=== PATIENT | female | born 1975 | race Caucasian/White ===

== ENCOUNTER 2017-12-31 03:25 | Emergency (ER) | payer SELFPAY ==
[~2017-12-31] VITALS: Ht 162.6 cm; Wt 62.6 kg
--- NOTE | 2017-12-31 03:44 | Emergency Room Report ---
History of Present Illness General Chief Complaint: General Complaint Source: Patient Present Illness HPI Is a 42-year-old female who had a thyroidectomy done 2 days ago. She said during the surgery one of the parathyroid made at been removed. She present today with chief complaint of tingling to her face and finger. She worried that her calcium level is low. She is taking calcium along with pain medication. No nausea no vomiting. No fever chills. Denies any other complaint. pain is well-controlled. nothing made it better. Nothing made it worse Allergies: Coded Allergies: LATEX (Verified Allergy, Unknown, 12/31/17) LEVOFLOXACIN (Verified Allergy, Unknown, 12/31/17) SULFA (SULFONAMIDE ANTIBIOTICS) (Verified Allergy, Unknown, 12/31/17) Patient History Past Medical History: see triage record, old chart reviewed Past Surgical History: other Pertinent Family History: none Social History: Denies: smoking Last Menstrual Period: november Now: No Immunizations: other Reviewed Nursing Documentation: PMH: Agreed; PSxH: Agreed Review of Systems Eye: Denies: eye pain, blurred vision ENT: Denies: ear pain, nose congestion, throat swelling Respiratory: Denies: cough, shortness of breath Cardiovascular: Denies: chest pain, palpitations Gastrointestinal: Denies: abdominal pain, diarrhea, nausea, vomiting Musculoskeletal: Denies: back pain, joint pain Skin: Denies: rash Neurological: Reports: tingling; Denies: headache, numbness Endocrine: Denies: increased thirst, increased urine Hematologic/Lymphatic: Denies: easy bruising All Other Systems: negative except mentioned in HPI Physical Exam Vital Signs Date Time Temp Pulse Resp B/P (MAP) Pulse Ox O2 Delivery O2 Flow Rate FiO2 12/31/17 03:27 98.1 80 16 125/82 94 Room Air 98.1 vitals normal Sp02 EP Interpretation: reviewed, normal General Appearance: well appearing, no apparent distress, alert Head: normocephalic, atraumatic Eyes: bilateral eye PERRL, bilateral eye EOMI ENT: hearing grossly normal, normal pharynx, other - no spasm of face with percussion Neck: full range of motion, supple, no meningismus Respiratory: chest non-tender, lungs clear, normal breath sounds Cardiovascular #1: regular rate, rhythm, no murmur Gastrointestinal: normal bowel sounds, non tender, no mass, no organomegaly, no bruit, non-distended Musculoskeletal: back normal, gait/station normal, normal range of motion Psychiatric: mood/affect normal Skin: warm/dry Medical Decision Making Diagnostic Impression: Primary Impression: Tingling sensation ER Course Patient with tingling sensation status post thyroidectomy. No evidence of any hypocalcemia. Most likely anxiety related. We'll discharge home. Last Vital Signs Date Time Temp Pulse Resp B/P (MAP) Pulse Ox O2 Delivery O2 Flow Rate FiO2 12/31/17 03:27 98.1 80 16 125/82 94 Room Air 98.1 Status: improved Disposition: HOME, SELF-CARE Condition: Stable Additional Instructions: follow-up with your Dr. as scheduled. Take your medication. Return if symptom worsen. DANIA PENNINGTON M.D. Dec 31, 2017 03:44
[2017-12-31 03:57] VITALS: BP 125/82
[2017-12-31] MEDS ORDERED: FALMINA1 EACH PO (04:05)
[2017-12-31] MEDS ORDERED: TRAMADOL HCL50 MG ORAL (04:05)
[2017-12-31] MEDS ORDERED: GABAPENTIN300 MG ORAL (04:05)
[2017-12-31] MEDS ORDERED: DOCUSATE SODIU100 MG ORAL (04:05)
[2017-12-31] MEDS ORDERED: OXYCODONE HCL10 MG ORAL (04:05)
[2017-12-31] MEDS ORDERED: VITAMIN B-12100 MCG ORAL (04:05)
[2017-12-31] MEDS ORDERED: LEXAPRO10 MG ORAL (04:05)
[2017-12-31] MEDS ORDERED: VITAMIN D1000 UNI1 ORAL (04:05)
[2017-12-31 04:08] LABS: HEMATOCRIT 40.2 % (37.0-47.0); HEMOGLOBIN 13.5 G/DL (12.0-16.0); LYMPHOCYTES % (AUTO) 31.3 % (20.0-45.0); MEAN CORPUSCULAR VOLUME 92 FL (80-99); MONOCYTES % (AUTO) 6.5 % (1.0-10.0); NEUTROPHILS % (AUTO) 60.2 % (45.0-75.0); PLATELET COUNT 264 K/UL (150-450); RED BLOOD COUNT 4.38 M/UL (4.20-5.40); WHITE BLOOD COUNT 6.7 K/UL (4.8-10.8)
[2017-12-31 04:16] LABS: ANION GAP 4 mmol/L (5-15); BLOOD UREA NITROGEN 9 mg/dL (7-18); CALCIUM 9.5 MG/DL (8.5-10.1); CARBON DIOXIDE 37 MMOL/L (21-32); CHLORIDE 99 MMOL/L (98-107); CREATININE 0.9 MG/DL (0.55-1.30); POTASSIUM 3.7 MMOL/L (3.5-5.1); SODIUM 140 MMOL/L (136-145)
[2017-12-31 04:45] VITALS: BP 125/82
== END 2017-12-31 04:46 | disposition home or self-care (01) ==
LOC: EMR 03:46
DX: R20.2 Paresthesia of skin (principal); E89.0 Postprocedural hypothyroidism; Z88.2 Allergy status to sulfonamides; Z91.040 Latex allergy status
CPT/HCPCS: 36415; 80048; 85025; 99283

== ENCOUNTER 2018-02-08 20:54 | Emergency (ER) | payer OTHER ==
[~2018-02-08] VITALS: Ht 162.6 cm; Wt 63.5 kg
[~2018-02-08 20:54] MED LIST: DOCUSATE SODIU100 MG ORAL; FALMINA1 EACH PO; GABAPENTIN300 MG ORAL; LEXAPRO10 MG ORAL; OXYCODONE HCL10 MG ORAL; TRAMADOL HCL50 MG ORAL; VITAMIN B-12100 MCG ORAL; VITAMIN D1000 UNI1 ORAL
[2018-02-08 21:11] VITALS: BP 120/76
[2018-02-08] MEDS ORDERED: Norco 5mg/325mg tab ORAL ONE (21:15)
--- NOTE | 2018-02-08 21:25 | Emergency Room Report ---
History of Present Illness General Chief Complaint: Toothache Source: Patient Present Illness HPI Is a 42-year-old female who had a recent thyroidectomy. She also saw a dentist for dental pain. She had to filling done in her left lower molar. She had to come back a couple times because of pain. She was just there few days ago and again today. Pain is 9 out of 10. No relief with her [place]. Pain radiating to the sinus and face. No fever chills but no drainage. No swelling. Allergies: Coded Allergies: LATEX (Verified Allergy, Unknown, 12/31/17) LEVOFLOXACIN (Verified Allergy, Unknown, 12/31/17) SULFA (SULFONAMIDE ANTIBIOTICS) (Verified Allergy, Unknown, 12/31/17) Patient History Past Medical History: see triage record, old chart reviewed Past Surgical History: other Pertinent Family History: none Social History: Denies: smoking Last Menstrual Period: 01/22/18 Now: No Immunizations: other Reviewed Nursing Documentation: PMH: Agreed; PSxH: Agreed Nursing Documentation-PMH Hx Cancer: Yes - thyroid cx Review of Systems Eye: Denies: eye pain, blurred vision ENT: Reports: other - Dental pain; Denies: ear pain, nose congestion, throat swelling Respiratory: Denies: cough, shortness of breath Cardiovascular: Denies: chest pain, palpitations Gastrointestinal: Denies: abdominal pain, diarrhea, nausea, vomiting Musculoskeletal: Denies: back pain, joint pain Skin: Denies: rash Neurological: Denies: headache, numbness Endocrine: Denies: increased thirst, increased urine Hematologic/Lymphatic: Denies: easy bruising All Other Systems: negative except mentioned in HPI Physical Exam Vital Signs Date Time Temp Pulse Resp B/P (MAP) Pulse Ox O2 Delivery O2 Flow Rate FiO2 02/08/18 21:01 98.4 75 16 120/76 98 Room Air 98.4 vitals normal Sp02 EP Interpretation: reviewed, normal General Appearance: well appearing, no apparent distress, alert Head: normocephalic, atraumatic Eyes: bilateral eye PERRL, bilateral eye EOMI ENT: hearing grossly normal, normal pharynx Neck: full range of motion, supple, no meningismus Respiratory: chest non-tender, lungs clear, normal breath sounds Cardiovascular #1: regular rate, rhythm, no murmur Gastrointestinal: normal bowel sounds, non tender, no mass, no organomegaly, no bruit, non-distended Musculoskeletal: back normal, gait/station normal, normal range of motion Psychiatric: mood/affect normal Skin: warm/dry Medical Decision Making Diagnostic Impression: Primary Impression: Toothache ER Course Patient with toothache. I see no evidence of any swelling or abscess. She had x-ray done today and last week. I will going put her on antibiotics. Last Vital Signs Date Time Temp Pulse Resp B/P (MAP) Pulse Ox O2 Delivery O2 Flow Rate FiO2 02/08/18 21:22 98.4 02/08/18 21:01 75 16 120/76 98 Room Air Status: improved Disposition: HOME, SELF-CARE Condition: Stable Scripts Clindamycin Hcl (CLINDAMYCIN HCL) 300 Mg Capsule 300 MG ORAL THREE TIMES A DAY, #21 CAP Prov: DANIA PENNINGTON M.D. 02/08/18 Patient Instructions: Dental Pain Additional Instructions: Follow-up your dentist ANGELA. Return if symptom worsen. DANIA PENNINGTON M.D. Feb 08, 2018 21:25
[2018-02-08] MEDS ORDERED: CLINDAMYCIN HC300 MG ORAL (21:29)
[2018-02-08 21:32] VITALS: BP 120/76
== END 2018-02-08 21:32 | disposition home or self-care (01) ==
LOC: EMR 21:24
DX: K08.89 Other specified disorders of teeth and supporting structures (principal); Z85.850 Personal history of malignant neoplasm of thyroid
CPT/HCPCS: 99282

== ENCOUNTER 2018-04-09 08:06 | Day surgery (SDC) | payer OTHER ==
[~2018-04-09] VITALS: Ht 162.6 cm; Wt 63.5 kg
[~2018-04-09 08:06] MED LIST changes: +Bupivacaine 0.5% Inj 30 ml vial INJ ONE; +CLINDAMYCIN HC300 MG ORAL; +Depo-Medrol 40mg Inj IARTIC ONE; +Depo-Medrol 80mg Vial IARTIC ONE; +Isovue-M 300 15ml INJ ONE; +LORazepam Inj 2mg/ml 1ml IV ONE; +Lidocaine 1% MPF 10mg/ml 5ml IM ONE
[2018-04-09 08:44] VITALS: BP 102/57
[2018-04-09] MEDS ORDERED: BUTRANS1 EAC3 TD (09:06)
[2018-04-09 09:24] LABS: BASOPHILS % (AUTO) 1.3 % (0.0-2.0); EOSINOPHILS % (AUTO) 1.2 % (0.0-3.0); HEMATOCRIT 35.3 % (37.0-47.0); HEMOGLOBIN 11.6 G/DL (12.0-16.0); LYMPHOCYTES % (AUTO) 41.2 % (20.0-45.0); MEAN CORPUSCULAR VOLUME 91 FL (80-99); MONOCYTES % (AUTO) 11.4 % (1.0-10.0); NEUTROPHILS % (AUTO) 44.9 % (45.0-75.0); PLATELET COUNT 227 K/UL (150-450); RED CELL DISTRIBUTION WIDTH 11.7 % (11.6-14.8); WHITE BLOOD COUNT 4.8 K/UL (4.8-10.8)
[2018-04-09 10:45] VITALS: BP 103/55
--- NOTE | 2018-04-09 10:53 | Discharge Instructions ---
Discharge Instructions Discharge Instructions Follow up with: dr. staley Diet: regular Resume Normal Activity?: Yes Activity: up ad rupinder For Surgical Patients Clean and Dry: surgical site Dressing Care: may change May shower: Yes Contact your physician for: bleeding, pain, tenderness, redness, swelling, yellowish discharge in the op. site For Congestive Heart Failure Reminder Report to your physician any weight gain of 5 pounds or more in one week. Mylene Staley MD Apr 09, 2018 10:53
--- NOTE | 2018-04-09 17:00 | Procedure Note ---
DATE OF PROCEDURE: 04/09/2018 PRE-PROCEDURE DIAGNOSIS: Degenerative disc disease, cervical with radiculopathy. POSTPROCEDURE DIAGNOSES: Degenerative disk disease, cervical with radiculopathy. PROCEDURE PERFORMED: Cervical epidural steroid injection under fluoroscopy. SURGEON: Mylene Staley M.D. PROCEDURE IN DETAIL: The patient was warned of the risks, benefits were discussed, questions were answered. The patient indicated that she understood and accepted risks including not only those involving the risk of the procedure itself, but also those regarding the use of x-ray contrast agent, radiation, nerve damage, bleeding, and . The patient was transported to the radiology suite and placed in the prone position on fluoroscopic compatible table. The cervical spine was flexed and forehead was placed on a padded toe. The skin was prepped with antiseptic solution at C5-C6 and C6-C7 interspaces. Spinous processes were located with the middle finger and index finger on either side and confirmed with palpation using a rocking motion in superior and inferior planes. The midline of C5-C6 interspace was identified by palpating the spinous processes above and below using no lateral rocking motion to ensure that needle entry was exactly in the midline. A syringe with 1% lidocaine methylparaben free was used to infiltrate the skin at the midline and a 3.5 inch 22-gauge Tuohy needle was inserted through the previously anesthetized area. A glass syringe with preservative free normal saline was attached holding firmly to the hub of the epidural needle with left hand firmly placed against the patient's neck. Constant pressure was applied to the plunger of the syringe with the right hand. The needle and syringe were continuously advanced in a slow deliberate motion with the left hand. There was a loss of resistance. Gentle aspiration revealed no CSF or heme and there was no paresthesia noted. Syringe containing 1 mL of 0.5% bupivacaine plus 120 mg of Depo-Medrol was instilled in the epidural space after confirmation of location with Isovue M 300 to make an epidurogram. The needle was removed without incident while flushing with preservative free normal saline. There was no residual motor or sensory deficit appreciated. The patient received 2 mg of lorazepam intravenously prior to the procedure and tolerated the procedure well without incident. The patient was transported to short stay surgery for monitoring given instructions for discharge when stable. Radiological technical assistance only was provided. Mylene Staley M.D. DR: Tay JOB#: [id number] CC: KAZ
== END 2018-04-09 11:20 | disposition home or self-care (01) ==
LOC: RAD 08:06 → SUR 08:06 → RAD 11:20
DX: M50.10 Cervical disc disorder with radiculopathy, unspecified cervical region (principal); M51.36 Other intervertebral disc degeneration, lumbar region; E06.3 Autoimmune thyroiditis; F32.9 Major depressive disorder, single episode, unspecified; Z85.850 Personal history of malignant neoplasm of thyroid; Z88.2 Allergy status to sulfonamides; Z88.1 Allergy status to other antibiotic agents; Z91.040 Latex allergy status; Z87.891 Personal history of nicotine dependence
CPT/HCPCS: 36415; 62321; 81025; 85025; 85610; 85730

== ENCOUNTER 2018-04-16 12:30 | Day surgery (SDC) | payer OTHER ==
[~2018-04-16] VITALS: Ht 162.6 cm; Wt 63.5 kg
[~2018-04-16 12:30] MED LIST changes: +BUTRANS1 EAC3 TD; -Bupivacaine 0.5% Inj 30 ml vial INJ ONE; +Bupivacaine 0.5% Inj 30 ml vial INJ SCH; -Depo-Medrol 40mg Inj IARTIC ONE; -Depo-Medrol 80mg Vial IARTIC ONE; +Depo-Medrol 80mg Vial IARTIC SCH; -Isovue-M 300 15ml INJ ONE; +Isovue-M 300 15ml INJ SCH; -LORazepam Inj 2mg/ml 1ml IV ONE; +LORazepam Inj 2mg/ml 1ml IV SCH; +Lidocaine 1% 10mg/ml/Epi 0.005mg/ml 30ml vial INJ SCH; -Lidocaine 1% MPF 10mg/ml 5ml IM ONE; +Lidocaine 1% MPF 10mg/ml 5ml INJ SCH
[2018-04-16 13:06] VITALS: BP 109/70
[2018-04-16] MEDS ORDERED: Bupivacaine 0.5% Inj 30 ml vial INJ ONE (13:16)
[2018-04-16] MEDS ORDERED: Lidocaine 1% MPF 10mg/ml 5ml ONE (13:16)
[2018-04-16] MEDS ORDERED: Depo-Medrol 80mg Vial ONE (13:16)
[2018-04-16] MEDS ORDERED: LORazepam Inj 2mg/ml 1ml ONE (13:17)
--- NOTE | 2018-04-16 14:40 | Discharge Instructions ---
Discharge Instructions Discharge Instructions Follow up with: Dr. Staley Diet: regular Resume Normal Activity?: Yes Activity: up ad rupinder Pneumonia Vaccine: vaccine not indicated Follow Up Orders patient to return to clinic in one week Return to Work/School on: Apr 16, 2018 For Surgical Patients Clean and Dry: surgical site Dressing Care: may change May shower: Yes Contact your physician for: bleeding, pain, tenderness, redness, swelling, yellowish discharge in the op. site For Congestive Heart Failure Reminder Report to your physician any weight gain of 5 pounds or more in one week. Mylene Staley MD Apr 16, 2018 14:40
[2018-04-16 14:50] VITALS: BP 98/62
[2018-04-16 15:10] VITALS: BP 103/57
--- NOTE | 2018-04-16 16:01 | Diagnostic Imaging Report ---
INDICATION: Neck pain, intraoperative TECHNIQUE: Intraoperative imaging Fluoroscopy time: 5.1 seconds Total dose: 0.19526 mGym2 Total number of images: One COMPARISON: None FINDINGS: Single intraoperative image demonstrates a needle, the tip of which there is contrast pooled to the right of midline at the C5-6 level IMPRESSION: Intraoperative imaging, as described
--- NOTE | 2018-04-16 20:00 | Procedure Note ---
DATE OF PROCEDURE: 04/16/2018 PREPROCEDURE DIAGNOSIS: Degenerative disc disease, cervical with radiculopathy. POSTPROCEDURE DIAGNOSIS: Degenerative disc disease, cervical with radiculopathy. PROCEDURE PERFORMED: Cervical epidural steroid injection under fluoroscopy. SURGEON: Mylene Staley M.D. PROCEDURE IN DETAIL: The patient was warned of risks, benefits were discussed, and questions were answered. The patient indicated that she understood and accepted the risks including not only those involving the risk of the procedure itself, but also those regarding the use of x-ray, contrast agent, radiation, nerve damage, bleeding, and . The patient was transported to the radiology suite and placed in the prone position on the fluoroscopic compatible table. The cervical spine was flexed and the forehead was placed on a padded pillow. The skin was prepped with antiseptic solution at C5-C6 and C6-C7 interspaces. The spinous processes were located with the middle finger and index finger on either side and confirmed with palpation using a rocking motion in the superior and inferior planes. The midline of C5-C6 interspace was identified by palpating the spinous processes above and below using lateral rocking motion to ensure that the needle entry was exactly at the midline. A syringe with 1% lidocaine methylparaben free was used to infiltrate the skin at the midline and a 3.5 inch 22-gauge Tuohy needle was inserted through the previously anesthetized area. A glass syringe with preservative-free normal saline was attached holding firmly to the hub of the epidural needle with the left hand firmly placed against the patient's neck. Constant pressure was applied to the plunger of the syringe with the right hand. The needle and syringe were continuously advanced in a slow deliberate motion with the left hand. There was a loss of resistance. Gentle aspiration revealed no CSF or heme and there was no paresthesia noted. A syringe containing 1 mL of 0.5% bupivacaine plus 80 mg of Depo-Medrol was instilled in the epidural space after confirmation of location with Isovue-M 300 to make an epidurogram. The needle was removed without incident while flushing with preservative free normal saline. There was no residual motor or sensory deficits appreciated. The patient received a total of 4 mg of lorazepam intravenously in 2 mg aliquots throughout the procedure and the patient tolerated the procedure well without incident. The patient was transported to short stay surgery for monitoring and given instructions for discharge when stable. Radiological technical assistance only was provided. Mylene Staley M.D. DR: BAILEY JOB#: [id number] CC: KAZ
== END 2018-04-16 15:30 | disposition home or self-care (01) ==
LOC: RAD 12:30
DX: M50.10 Cervical disc disorder with radiculopathy, unspecified cervical region (principal); M51.36 Other intervertebral disc degeneration, lumbar region; E06.3 Autoimmune thyroiditis; E89.0 Postprocedural hypothyroidism; F32.9 Major depressive disorder, single episode, unspecified; Z88.2 Allergy status to sulfonamides; Z88.1 Allergy status to other antibiotic agents; Z91.040 Latex allergy status
CPT/HCPCS: 62320; 81025

== ENCOUNTER 2018-04-25 23:12 | Emergency (ER) | payer SELFPAY ==
[~2018-04-25] VITALS: Ht 162.6 cm; Wt 60.3 kg
[~2018-04-25 23:12] MED LIST changes: -Bupivacaine 0.5% Inj 30 ml vial INJ SCH; -Depo-Medrol 80mg Vial IARTIC SCH; -Isovue-M 300 15ml INJ SCH; -LORazepam Inj 2mg/ml 1ml IV SCH; -Lidocaine 1% 10mg/ml/Epi 0.005mg/ml 30ml vial INJ SCH; -Lidocaine 1% MPF 10mg/ml 5ml INJ SCH
[2018-04-25] MEDS ORDERED: SYNTHROID100 MCG ORAL (23:22)
[2018-04-25] MEDS ORDERED: LORazepam Inj 2mg/ml 1ml IM ONE (23:45)
[2018-04-25 23:55] VITALS: BP 131/81
--- NOTE | 2018-04-26 00:15 | Emergency Room Report ---
History of Present Illness General Chief Complaint: General Complaint Source: Patient Present Illness HPI Is a 42-year-old female with a history of hypothyroid requiring surgery. Now she is hypothyroid on medication. She also has a history anxiety. She presents with chief complaint of feeling anxious. No suicidal thought homicidal thought. She thought this may be secondary to her dosing of Synthroid been decreased from 112 mcg to 100 mcg. She took some Valium is not helping. Feeling shaky. Feeling nervous. Denies any other complaint. Allergies: Coded Allergies: LATEX (Verified Allergy, Unknown, 12/31/17) LEVOFLOXACIN (Verified Allergy, Unknown, 12/31/17) SULFA (SULFONAMIDE ANTIBIOTICS) (Verified Allergy, Unknown, 12/31/17) Patient History Past Medical History: see triage record, old chart reviewed, psych hx Past Surgical History: other Pertinent Family History: none Social History: Denies: smoking Last Menstrual Period: 04/20/18 Now: No Immunizations: other Reviewed Nursing Documentation: PMH: Agreed; PSxH: Agreed Nursing Documentation-PMH Past Medical History: No History, Except For Hx Cardiac Problems: No Hx Cancer: Yes - THYROID Hx Gastrointestinal Problems: No Hx Neurological Problems: Yes Hx Headaches: Yes - FOR 25 DAYS STRAIGHT Review of Systems Eye: Denies: eye pain, blurred vision ENT: Denies: ear pain, nose congestion, throat swelling Respiratory: Denies: cough, shortness of breath Cardiovascular: Reports: palpitations; Denies: chest pain Gastrointestinal: Denies: abdominal pain, diarrhea, nausea, vomiting Musculoskeletal: Denies: back pain, joint pain Skin: Denies: rash Psychiatric: Reports: anxiety Neurological: Denies: headache, numbness Endocrine: Denies: increased thirst, increased urine Hematologic/Lymphatic: Denies: easy bruising All Other Systems: negative except mentioned in HPI Physical Exam Vital Signs Date Time Temp Pulse Resp B/P (MAP) Pulse Ox O2 Delivery O2 Flow Rate FiO2 04/25/18 23:16 97.5 84 18 131/81 97 Room Air vitals normal Sp02 EP Interpretation: reviewed, normal General Appearance: well appearing, no apparent distress, alert Head: normocephalic, atraumatic Eyes: bilateral eye PERRL, bilateral eye EOMI ENT: hearing grossly normal, normal pharynx Neck: full range of motion, supple, no meningismus Respiratory: chest non-tender, lungs clear, normal breath sounds Cardiovascular #1: regular rate, rhythm, no murmur Gastrointestinal: normal bowel sounds, non tender, no mass, no organomegaly, no bruit, non-distended Musculoskeletal: back normal, gait/station normal, normal range of motion Neurologic: alert, oriented x3 Psychiatric: anxious Skin: warm/dry Medical Decision Making Diagnostic Impression: Primary Impression: Anxiety ER Course She presents with anxiety/panic attack. Better after Ativan. No longer shaky. No longer nervous. We'll discharge home. Last Vital Signs Date Time Temp Pulse Resp B/P (MAP) Pulse Ox O2 Delivery O2 Flow Rate FiO2 04/25/18 23:55 97.5 98 18 131/81 97 Room Air Status: improved Disposition: HOME, SELF-CARE Condition: Stable Additional Instructions: Follow-up with your doctor in 7 days. Return if worse. Axel Lubin MD Apr 26, 2018 00:15
[2018-04-26 00:19] VITALS: BP 131/81
== END 2018-04-26 00:10 | disposition home or self-care (01) ==
LOC: EMR 23:40
DX: F41.9 Anxiety disorder, unspecified (principal); E03.9 Hypothyroidism, unspecified; Z88.2 Allergy status to sulfonamides; Z91.040 Latex allergy status; Z79.899 Other long term (current) drug therapy
CPT/HCPCS: 96372; 99283

== ENCOUNTER 2018-08-31 14:49 | Emergency (ER) | payer BC ==
[~2018-08-31] VITALS: Ht 162.6 cm; Wt 65.8 kg
[~2018-08-31 14:49] MED LIST changes: +SYNTHROID100 MCG ORAL
[2018-08-31 14:56] VITALS: BP 134/86
[2018-08-31] MEDS ORDERED: LEXAPRO10 MG ORAL (14:59)
[2018-08-31] MEDS ORDERED: Birth control ORAL (14:59)
[2018-08-31] MEDS ORDERED: Morphine Sulfate 4mg/ml Inj (IV USE ONLY) IVP ONE (15:15)
[2018-08-31] MEDS ORDERED: Isovue-300 100ml vial INJ PRN (15:15)
--- NOTE | 2018-08-31 15:19 | Emergency Room Report ---
History of Present Illness General Chief Complaint: Abdominal Pain Source: Patient Present Illness HPI 42-year-old female presents ED for evaluation. Patient complaining of abdominal pain started about one hour ago. 8 out of 10, sharp, nonradiating, localized to right lower quadrant. Nausea, denies vomiting. Denies fevers or chills. Denies dysuria or hematuria. No other aggravating relieving factors. Denies any other associated symptoms Allergies: Coded Allergies: LATEX (Verified Allergy, Unknown, 12/31/17) LEVOFLOXACIN (Verified Allergy, Unknown, 12/31/17) SULFA (SULFONAMIDE ANTIBIOTICS) (Verified Allergy, Unknown, 12/31/17) SULFAMETHOXAZOLE (Verified Allergy, Unknown, 08/31/18) TRIMETHOPRIM (Verified Allergy, Unknown, 08/31/18) Patient History Past Medical History: psych hx, other - thyroid cancer Past Surgical History: none Pertinent Family History: none Social History: Denies: smoking, alcohol use, drug use Last Menstrual Period: 08/13/2018 Now: No Immunizations: UTD Reviewed Nursing Documentation: PMH: Agreed; PSxH: Agreed Nursing Documentation-PMH Past Medical History: No History, Except For Hx Cardiac Problems: No Hx Cancer: Yes - THYROID CA Hx Gastrointestinal Problems: No History Of Psychiatric Problem: Yes - Depression Hx Neurological Problems: Yes Hx Headaches: Yes - FOR 25 DAYS STRAIGHT Review of Systems All Other Systems: negative except mentioned in HPI Physical Exam Vital Signs Date Time Temp Pulse Resp B/P (MAP) Pulse Ox O2 Delivery O2 Flow Rate FiO2 08/31/18 14:56 98.4 86 14 134/86 95 Room Air Sp02 EP Interpretation: reviewed, normal General Appearance: no apparent distress, alert, GCS 15, non-toxic Head: normocephalic, atraumatic Eyes: bilateral eye normal inspection, bilateral eye PERRL ENT: hearing grossly normal, normal pharynx, no angioedema, normal voice Neck: full range of motion, supple/symm/no masses Respiratory: chest non-tender, lungs clear, normal breath sounds, speaking full sentences Cardiovascular #1: regular rate, rhythm, no edema Cardiovascular #2: 2+ carotid (R), 2+ carotid (L), 2+ radial (R), 2+ radial (L) , 2+ dorsalis pedis (R), 2+ dorsalis pedis (L) Gastrointestinal: normal bowel sounds, soft, non-distended, no rebound, guarding, tenderness - RLQ Rectal: deferred Genitourinary: normal inspection, no CVA tenderness Musculoskeletal: back normal, gait/station normal, normal range of motion, non- tender Neurologic: alert, oriented x3, responsive, motor strength/tone normal, sensory intact, speech normal Psychiatric: judgement/insight normal, memory normal, mood/affect normal, no suicidal/homicidal ideation Reflexes: 3+ bicep (R), 3+ bicep (L), 3+ tricep (R), 3+ tricep (L), 3+ knee (R) , 3+ knee (L) Skin: normal color, no rash, warm/dry, well hydrated Lymphatic: no adenopathy Medical Decision Making Diagnostic Impression: Primary Impression: Abdominal pain Qualified Codes: R10.31 - Right lower quadrant pain ER Course Hospital Course 42-year-old F presents to ED with abdominal pain Differential diagnosis includes-appendicitis, cholecystitis, small bowel obstruction, gastritis, Clinical course Patient placed on stretcher. After initial history and physical I ordered labs , IV fluids, pain medications and CT scan Labs - no leukocytosis, electrolytes ok, LFTs normal, UA unremarkable CT scan shows no evidence of appendicitis or other acute process. It appears significant fecal impaction on the right side Discussed findings with patient. Reassurance given. Patient states she is on tramadol for chronic back pain. Explained that prolonged opiate use can precipitate one to constipation. We will discharged to home with stool softeners. We also recommend alternative medications for her back pain. We will try Tylenol, Robaxin, Lidoderm Patient states she has a PMD. We'll provide copies of CT report and labs. Safe for discharge and close outpatient follow-up I feel this is a highly complex case requiring extensive working including EKG/ Rhythm strip, Xray/CT/US, Blood/urine lab work, repeat exams while in ED, and administration of strong opiates/narcotics for pain control, admission to hospital or close patient follow up. Diagnosis - abdominal pain Stable and discharged to home with Rx Tylenol, Robaxin, Lidoderm, colace. Followup with PMD. Return to ED if symptoms recur or worsen Labs Test 08/31/18 15:20 White Blood Count 5.8 K/UL (4.8-10.8) Red Blood Count 4.09 M/UL (4.20-5.40) Hemoglobin 12.6 G/DL (12.0-16.0) Hematocrit 38.0 % (37.0-47.0) Mean Corpuscular Volume 93 FL (80-99) Mean Corpuscular Hemoglobin 30.9 PG (27.0-31.0) Mean Corpuscular Hemoglobin Concent 33.2 G/DL (32.0-36.0) Red Cell Distribution Width 11.1 % (11.6-14.8) Platelet Count 266 K/UL (150-450) Mean Platelet Volume 7.2 FL (6.5-10.1) Neutrophils (%) (Auto) 54.5 % (45.0-75.0) Lymphocytes (%) (Auto) 37.1 % (20.0-45.0) Monocytes (%) (Auto) 5.4 % (1.0-10.0) Eosinophils (%) (Auto) 1.3 % (0.0-3.0) Basophils (%) (Auto) 1.6 % (0.0-2.0) Urine Color Pale yellow Urine Appearance Clear Urine pH 6.5 (4.5-8.0) Urine Specific Neal 1.005 (1.005-1.035) Urine Protein Negative (NEGATIVE) Urine Glucose (UA) Negative (NEGATIVE) Urine Ketones Negative (NEGATIVE) Urine Blood Negative (NEGATIVE) Urine Nitrite Negative (NEGATIVE) Urine Bilirubin Negative (NEGATIVE) Urine Urobilinogen Normal MG/DL (0.0-1.0) Urine Leukocyte Esterase Negative (NEGATIVE) Urine HCG, Qualitative Negative (NEGATIVE) Sodium Level 138 MMOL/L (136-145) Potassium Level 4.1 MMOL/L (3.5-5.1) Chloride Level 102 MMOL/L (98-107) Carbon Dioxide Level 28 MMOL/L (21-32) Anion Gap 8 mmol/L (5-15) Blood Urea Nitrogen 10 mg/dL (7-18) Creatinine 0.8 MG/DL (0.55-1.30) Estimat Glomerular Filtration Rate > 60 mL/min (>60) Glucose Level 90 MG/DL (74-106) Calcium Level 8.5 MG/DL (8.5-10.1) Total Bilirubin 0.4 MG/DL (0.2-1.0) Aspartate Amino Transf (AST/SGOT) 18 U/L (15-37) Alanine Aminotransferase (ALT/SGPT) 20 U/L (12-78) Alkaline Phosphatase 49 U/L (46-116) Total Protein 7.3 G/DL (6.4-8.2) Albumin 4.0 G/DL (3.4-5.0) Globulin 3.3 g/dL Albumin/Globulin Ratio 1.2 (1.0-2.7) Lipase 161 U/L (73-393) CT/MRI/US Diagnostic Results CT/MRI/US Diagnostic Results : Imaging Test Ordered: CT A/P Impression Liver: Focal fat along the falciform ligament. Spleen: Small hypodensity in the spleen is too small to definitively characterize. Gallbladder: Normal. No stones or biliary dilatation. Pancreas: Normal. No acute inflammation. No mass. Adrenal glands: Normal. No mass. Kidneys: Normal. No hydronephrosis or stone. No mass. Bowel: Large amount of stool in the colon may represent constipation. Normal appendix. No bowel obstruction or inflammation. Urinary bladder: Nonspecific mild bladder wall thickening. Reproductive organs: Normal. Muscles: No mass. Subcutaneous tissues: Normal. Peritoneal space: Normal. No free fluid. Lymph nodes: Normal. No lymphadenopathy. Vessels: Normal. No aneurysm or dissection. Bones: No acute fracture. Prominent degenerative changes at L5-S1. Lung bases: Normal. Last Vital Signs Date Time Temp Pulse Resp B/P (MAP) Pulse Ox O2 Delivery O2 Flow Rate FiO2 08/31/18 14:56 98.4 86 14 134/86 95 Room Air Status: improved Disposition: HOME, SELF-CARE Condition: Stable Scripts Lidocaine (Lidoderm) 1 Each Adh..patch 1 PATCH TOPIC DAILY, #7 PATCH 0 Refills Patch(es) may remain in place for up to 12 hours in any 24-hour period. Prov: Sina Miller MD 08/31/18 Methocarbamol* (ROBAXIN-750*) 750 Mg Tablet 750 MG PO TID, #21 TAB 0 Refills Prov: Sina Miller MD 08/31/18 Acetaminophen* (TYLENOL EXTRA STRENGTH*) 500 Mg Tablet 500 MG ORAL Q8H PRN for Prn Headache/Temp > 101, #30 TAB 0 Refills Prov: Sina Miller MD 08/31/18 Docusate Sodium* (COLACE*) 100 Mg Capsule 100 MG ORAL THREE TIMES A DAY, #30 CAP Prov: Sina Miller MD 08/31/18 Sina Miller MD Aug 31, 2018 15:19
[2018-08-31 15:50] LABS: APPEARANCE,URINE CLEAR; BILIRUBIN, URINE NEGATIVE (NEGATIVE); COLOR,URINE PALE YELLOW; GLUCOSE, URINE (UA) NEGATIVE (NEGATIVE); KETONES,URINE NEGATIVE (NEGATIVE); LEUKOCYTE ESTERASE ,URINE NEGATIVE (NEGATIVE); NITRITE,URINE NEGATIVE (NEGATIVE); PH,URINE 6.5 (4.5-8.0); PROTEIN,URINE NEGATIVE (NEGATIVE); UROBILINOGEN,URINE NORMAL MG/DL (0.0-1.0)
[2018-08-31 15:59] LABS: ANION GAP 8 mmol/L (5-15); BLOOD UREA NITROGEN 10 mg/dL (7-18); CALCIUM 8.5 MG/DL (8.5-10.1); CARBON DIOXIDE 28 MMOL/L (21-32); CHLORIDE 102 MMOL/L (98-107); CREATININE 0.8 MG/DL (0.55-1.30); POTASSIUM 4.1 MMOL/L (3.5-5.1); SODIUM 138 MMOL/L (136-145)
[2018-08-31 16:00] LABS: BASOPHILS % (AUTO) 1.6 % (0.0-2.0); EOSINOPHILS % (AUTO) 1.3 % (0.0-3.0); HEMOGLOBIN 12.6 G/DL (12.0-16.0); LYMPHOCYTES % (AUTO) 37.1 % (20.0-45.0); MEAN CORPUSCULAR VOLUME 93 FL (80-99); MONOCYTES % (AUTO) 5.4 % (1.0-10.0); NEUTROPHILS % (AUTO) 54.5 % (45.0-75.0); PLATELET COUNT 266 K/UL (150-450); RED BLOOD COUNT 4.09 M/UL (4.20-5.40); RED CELL DISTRIBUTION WIDTH 11.1 % (11.6-14.8); WHITE BLOOD COUNT 5.8 K/UL (4.8-10.8)
[2018-08-31 16:08] LABS: ALANINE AMINOTRANSFERASE 20 U/L (12-78); ALBUMIN/GLOBULIN RATIO 1.2 (1.0-2.7); ALKALINE PHOSPHATASE 49 U/L (46-116); ASPARTATE AMINO TRANSFERASE 18 U/L (15-37); BILIRUBIN,TOTAL 0.4 MG/DL (0.2-1.0)
[2018-08-31 17:05] VITALS: BP 129/82
--- NOTE | 2018-08-31 18:04 | Consultation ---
History of Present Illness General Date patient seen: Aug 31, 2018 Reason for Hospitalization: Abdominal Pain Present Illness HPI 42 year old female with history of thyroid cancer s/p total thyroidectomy on synthroid presented with acute onset of RLQ abdominal pain starting 4 hrs ago. States she was going about her day until she had acute onset 10/10 RLQ sharp abdominal pain. no associated nausea or emesis. no fever or chills. no radiation of pain. states it was difficult for her to put her her pants given amount of pain. came to ED for evaluation. states pain almost resolved now after 1 dose of morphine. labs nml. CT pending. Surgery called to evaluate. patient seen, chart reviewed, patient examined. Allergies: Coded Allergies: LATEX (Verified Allergy, Unknown, 12/31/17) LEVOFLOXACIN (Verified Allergy, Unknown, 12/31/17) SULFA (SULFONAMIDE ANTIBIOTICS) (Verified Allergy, Unknown, 12/31/17) SULFAMETHOXAZOLE (Verified Allergy, Unknown, 08/31/18) TRIMETHOPRIM (Verified Allergy, Unknown, 08/31/18) Medication History Scheduled Escitalopram Oxalate* (Lexapro*), 15 MG ORAL DAILY, (Reported) Levothyroxine Sodium* (Synthroid*), 88 MCG ORAL DAILY, (Reported) [ control], 1 TAB ORAL DAILY, (Reported) Patient History Healthcare decision maker Resuscitation status Advanced Directive on File Review of Systems Review of Symptoms General ROS: no weight loss or fever Psychological ROS: no depression or mood changes, no memory loss Ophthalmic ROS: no visual changes or eye irritation ENT ROS: no nasal congestion, hearing loss, dizziness Allergy and Immunology ROS: no allergic symptoms or urticaria Hematological and Lymphatic ROS: no swollen glands, unusual bleeding or bruising Endocrine ROS: no polyuria, polydipsia, weight changes, temperature intolerance Respiratory ROS: no cough, shortness of breath, or wheezing Cardiovascular ROS: no chest pain or dyspnea on exertion Gastrointestinal ROS: abdominal pain, no bright red blood in stool. Musculoskeletal ROS: no myalgias or arthralgias Neurological ROS: no TIA or stroke symptoms Dermatological ROS: no new or changing skin lesions, rashes or pruritis Physical Exam Physical Exam General appearance: alert, cooperative, no distress, appears stated age Head: Normocephalic, without obvious abnormality, atraumatic Eyes: conjunctivae/corneas clear. PERRL, EOM's intact. Fundi benign Throat: Lips, mucosa, and tongue normal. Teeth and gums normal; prior thyroidectomy scar well healed Neck: supple, symmetrical, trachea midline, no adenopathy, thyroid: not enlarged, symmetric, no tenderness/mass/nodules, no carotid bruit and no JVD Lungs: clear to auscultation bilaterally Heart: regular rate and rhythm, S1, S2 normal, no murmur, click, rub or gallop Abdomen: soft, minimal tender on deep palpation of RLQ without rebound or guarding. Bowel sounds normal. No masses, no organomegaly Extremities: extremities normal, atraumatic, no cyanosis or edema Pulses: 2+ and symmetric Skin: Skin color, texture, turgor normal. No rashes or lesions Neurologic: Grossly normal Last 24 Hour Vital Signs Date Time Temp Pulse Resp B/P (MAP) Pulse Ox O2 Delivery O2 Flow Rate FiO2 08/31/18 17:05 98.2 79 15 129/82 99 Room Air 08/31/18 15:56 98.4 08/31/18 15:06 86 14 Room Air 08/31/18 14:56 98.4 86 14 134/86 95 Room Air 08/31/18 14:56 98.4 14 134/86 95 Room Air Laboratory Tests Test 08/31/18 15:20 White Blood Count 5.8 K/UL (4.8-10.8) Red Blood Count 4.09 M/UL (4.20-5.40) L Hemoglobin 12.6 G/DL (12.0-16.0) Hematocrit 38.0 % (37.0-47.0) Mean Corpuscular Volume 93 FL (80-99) Mean Corpuscular Hemoglobin 30.9 PG (27.0-31.0) Mean Corpuscular Hemoglobin Concent 33.2 G/DL (32.0-36.0) Red Cell Distribution Width 11.1 % (11.6-14.8) L Platelet Count 266 K/UL (150-450) Mean Platelet Volume 7.2 FL (6.5-10.1) Neutrophils (%) (Auto) 54.5 % (45.0-75.0) Lymphocytes (%) (Auto) 37.1 % (20.0-45.0) Monocytes (%) (Auto) 5.4 % (1.0-10.0) Eosinophils (%) (Auto) 1.3 % (0.0-3.0) Basophils (%) (Auto) 1.6 % (0.0-2.0) Urine Color Pale yellow Urine Appearance Clear Urine pH 6.5 (4.5-8.0) Urine Specific Ava 1.005 (1.005-1.035) Urine Protein Negative (NEGATIVE) Urine Glucose (UA) Negative (NEGATIVE) Urine Ketones Negative (NEGATIVE) Urine Blood Negative (NEGATIVE) Urine Nitrite Negative (NEGATIVE) Urine Bilirubin Negative (NEGATIVE) Urine Urobilinogen Normal MG/DL (0.0-1.0) Urine Leukocyte Esterase Negative (NEGATIVE) Urine HCG, Qualitative Negative (NEGATIVE) Sodium Level 138 MMOL/L (136-145) Potassium Level 4.1 MMOL/L (3.5-5.1) Chloride Level 102 MMOL/L (98-107) Carbon Dioxide Level 28 MMOL/L (21-32) Anion Gap 8 mmol/L (5-15) Blood Urea Nitrogen 10 mg/dL (7-18) Creatinine 0.8 MG/DL (0.55-1.30) Estimat Glomerular Filtration Rate > 60 mL/min (>60) Glucose Level 90 MG/DL (74-106) Calcium Level 8.5 MG/DL (8.5-10.1) Total Bilirubin 0.4 MG/DL (0.2-1.0) Aspartate Amino Transf (AST/SGOT) 18 U/L (15-37) Alanine Aminotransferase (ALT/SGPT) 20 U/L (12-78) Alkaline Phosphatase 49 U/L (46-116) Total Protein 7.3 G/DL (6.4-8.2) Albumin 4.0 G/DL (3.4-5.0) Globulin 3.3 g/dL Albumin/Globulin Ratio 1.2 (1.0-2.7) Lipase 161 U/L (73-393) Height (Feet): 5 Height (Inches): 4.00 Weight (Pounds): 145 Medications Current Medications Medications (Trade) Dose Ordered Sig/Freddie Route PRN Reason Start Time Stop Time Status Last Admin Dose Admin Barium Sulfate (Readi-Cat 2) 450 ml NOW PRN ORAL Radiology Procedure 08/31/18 15:15 09/02/18 15:13 Iopamidol (Isovue-300 100ml) 100 ml NOW PRN INJ Radiology Procedure 08/31/18 15:15 Assessment/Plan Problem List: (1) Abdominal pain Assessment & Plan: 42F acute onset of sharp severe RLQ pain. resolved after 1 dose of morphine labs okay CT pending exam fairly benign. some discomfort from RLQ deep palpation but no rebound or guarding. possible early acute appendicitis? await final CT result if CT okay can d/c home with outpatient follow up with me if CT equivocal or with signs of early acute appy plan to admit for observation and serial exams vs OR thank you ICD Codes: R10.9 - Unspecified abdominal pain SNOMED: [id number] Jone De Jesus Aug 31, 2018 18:04
[2018-08-31] MEDS ORDERED: TYLENOL EXTRA500 MG ORAL (18:39)
[2018-08-31] MEDS ORDERED: COLACE100 MG ORAL (18:39)
[2018-08-31] MEDS ORDERED: ROBAXIN-750750 MG PO (18:39)
[2018-08-31] MEDS ORDERED: LIDODERM700 M1 TOPIC (18:39)
[2018-08-31] MEDS ORDERED: Ketorolac 30mg Inj IV ONE (18:45)
[2018-08-31] MEDS ORDERED: Methocarbamol 750mg tab ORAL ONE (18:45)
[2018-08-31 18:50] VITALS: BP 132/75
== END 2018-08-31 18:50 | disposition home or self-care (01) ==
LOC: EMR 16:37
DX: R10.31 Right lower quadrant pain (principal); R11.0 Nausea; Z88.2 Allergy status to sulfonamides; Z88.8 Allergy status to other drugs, medicaments and biological substances; Z91.040 Latex allergy status; Z85.850 Personal history of malignant neoplasm of thyroid; F32.9 Major depressive disorder, single episode, unspecified; R51 Headache
CPT/HCPCS: 36415; 74177; 80053; 81003; 81025; 83690; 85025; 96361; 96374; 96375; 99284; J2270; J2405; Q9967

== ENCOUNTER 2020-03-29 19:02 | Emergency (ER) | payer BC ==
[~2020-03-29] VITALS: Ht 162.6 cm; Wt 73.5 kg
[~2020-03-29 19:02] MED LIST changes: +ATIVAN0.5 MG ORAL; +Birth control ORAL; +COLACE100 MG ORAL; +LIDODERM700 M1 TOPIC; +PERCOCET 10-321 EACH ORAL; +ROBAXIN-750750 MG PO; +TYLENOL EXTRA500 MG ORAL
[2020-03-29 19:10] VITALS: BP 106/58
--- NOTE | 2020-03-29 19:31 | NUR ---
ED Nurse Note: pt presents to ED c/o neck pain and swelling. pt reports she has had multiple surgeries on her neck, most recent one being in October. pt is concerned about infection. skin over incision to back of neck is warm, dry and intact. pt also reports nausea/vomiting from pain. 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 pt is taking percocet, PO diclofenac and robaxin for pain management
--- NOTE | 2020-03-29 19:40 | NUR ---
ED Nurse Note: pt also reports taking Keflex FINANCIAL REPRESENTATIVE that her Dr prescribed to her prophylactically
[2020-03-29 19:59] LABS: BASOPHILS % (AUTO) 1.5 % (0.0-2.0); EOSINOPHILS % (AUTO) 0.8 % (0.0-3.0); HEMATOCRIT 39.6 % (37.0-47.0); HEMOGLOBIN 12.8 G/DL (12.0-16.0); LYMPHOCYTES % (AUTO) 34.1 % (20.0-45.0); MEAN CORPUSCULAR VOLUME 94 FL (80-99); MONOCYTES % (AUTO) 7.3 % (1.0-10.0); NEUTROPHILS % (AUTO) 56.2 % (45.0-75.0); PLATELET COUNT 253 K/UL (150-450); RED BLOOD COUNT 4.23 M/UL (4.20-5.40); RED CELL DISTRIBUTION WIDTH 12.3 % (11.6-14.8); WHITE BLOOD COUNT 5.7 K/UL (4.8-10.8)
[2020-03-29] MEDS ORDERED: Omnipaque-300 100ml vial INJ ONE (20:00)
[2020-03-29 20:10] LABS: ANION GAP -7 mmol/L (5-15); BLOOD UREA NITROGEN 7 mg/dL (7-18); CARBON DIOXIDE 30 MMOL/L (21-32); CHLORIDE 98 MMOL/L (98-107); CREATININE 0.9 MG/DL (0.55-1.30); POTASSIUM 3.6 MMOL/L (3.5-5.1); SODIUM 121 MMOL/L (136-145)
[2020-03-29 20:15] LABS: ALANINE AMINOTRANSFERASE 24 U/L (12-78); ALBUMIN 3.5 G/DL (3.4-5.0); ALBUMIN/GLOBULIN RATIO 1.1 (1.0-2.7); ALKALINE PHOSPHATASE 54 U/L (46-116); ASPARTATE AMINO TRANSFERASE 23 U/L (15-37); BILIRUBIN,TOTAL 0.3 MG/DL (0.2-1.0)
--- NOTE | 2020-03-29 20:32 | NUR ---
ED Nurse Note: Pt taken to CT
--- NOTE | 2020-03-29 20:36 | Emergency Room Report ---
History of Present Illness General Chief Complaint: Neck Pain Present Illness HPI 44-year-old female presents to the emergency department complaining of progressive onset 10 out of 10 severity posterior neck pain x2 weeks. Patient reports initial onset was the day following having a steroid injection performed in her lower back. Patient with history of thyroid cancer in addition to cervical spinal surgery that was performed this past October. Patient denies fevers she reports some chills and hot flashes. Patient states that over the course of the last 2 weeks she has been unable to participate in physical therapy. She reports that she did contact her surgeon who initially thought she was having some type of nerve issue. Patient reports that after pain was not improving she contacted her surgeon today and sent him a picture of her neck. Per patient the surgeon felt that there was some soft tissue swelling and prophylactically placed the patient on Keflex. Patient presents this evening to the emergency department for evaluation as she states that her symptoms still are not improving and she has been having to take her chronic pain medications with no relief. 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 She denies paresthesias or loss of gross motor movements. Pt. denies unilateral extremity weakness. PT. reports she did have somewhat of a ST last week. Pt. denies cough, nasal congestion or ear pain. Pt. does reports right sided constant dull NAILS, and states she does not have a hx of migraines. Pt. reports frequently having NAILS's associated with her neck pain. She denies sudden onset of her NAILS. She reports some photophobia. She denies nausea or vomiting. 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 (Tracy Currie) Patient History Past Medical History: see triage record Past Surgical History: none Pertinent Family History: none Now: No Reviewed Nursing Documentation: PMH: Agreed; PSxH: Agreed (Tracy Currie) Nursing Documentation-PMH Hx Cardiac Problems: No Hx Cancer: Yes - THYROID CA Hx Gastrointestinal Problems: No Hx Neurological Problems: Yes - neck disk surgery Hx Headaches: Yes - FOR 25 DAYS STRAIGHT (Tracy Currie) Review of Systems All Other Systems: negative except mentioned in HPI (Tracy Currie) Physical Exam Vital Signs Date Time Temp Pulse Resp B/P (MAP) Pulse Ox O2 Delivery O2 Flow Rate FiO2 03/29/20 19:05 98.8 91 19 106/58 (74) 97 Room Air Sp02 EP Interpretation: reviewed, normal General Appearance: no apparent distress, alert, GCS 15, non-toxic Head: normocephalic Eyes: bilateral eye normal inspection, bilateral eye PERRL, bilateral eye other - no significant photophobia ENT: hearing grossly normal, normal pharynx, normal voice, TMs + canals normal, uvula midline, moist mucus membranes Neck: full range of motion, tender - midline and on the left side of the surgical scar. Some mild ST swelling noted on the left side, no appreciable erytehma or warmth. Respiratory: lungs clear, normal breath sounds, speaking full sentences Cardiovascular #1: regular rate, rhythm, normal capillary refill Cardiovascular #2: 2+ radial (R), 2+ radial (L) Musculoskeletal: normal range of motion, gait/station normal, tender - Lumbar paraspinal tenderness. no obvious step-off. Neurologic: alert, motor strength/tone normal, oriented x3, sensory intact, responsive, speech normal, grossly normal, no focal defects Psychiatric: judgement/insight normal Skin: no rash, normal color (Tracy Currie) Medical Decision Making PA Attestation Dr. Miller is my supervising Physician whom patient management has been discussed with. (Tracy Currie) Diagnostic Impression: Primary Impression: Neck pain ER Course 44-year-old female presents to the emergency department complaining of progressive onset 10 out of 10 severity posterior neck pain x2 weeks. Patient reports initial onset was the day following having a steroid injection performed in her lower back. Patient with history of thyroid cancer in addition to cervical spinal surgery that was performed this past October. Patient denies fevers she reports some chills and hot flashes. Patient states that over the course of the last 2 weeks she has been unable to participate in physical therapy. She reports that she did contact her surgeon who initially thought she was having some type of nerve issue. Patient reports that after pain was not improving she contacted her surgeon today and sent him a picture of her neck. Per patient the surgeon felt that there was some soft tissue swelling and prophylactically placed the patient on Keflex. Patient presents this evening to the emergency department for evaluation as she states that her symptoms still are not improving and she has been having to take her chronic pain medications with no relief. 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 She denies paresthesias or loss of gross motor movements. Pt. denies unilateral extremity weakness. PT. reports she did have somewhat of a ST last week. Pt. denies cough, nasal congestion or ear pain. Pt. does reports right sided constant dull NAILS, and states she does not have a hx of migraines. Pt. reports frequently having NAILS's associated with her neck pain. She denies sudden onset of her NAILS. She reports some photophobia. She denies nausea or vomiting. Ddx considered but are not limited to exacerbation of chronic pain, acute cervical strain, abscess/infectious process, meningitis, SAH, tension headache, radicular pain just to name a few Vital signs: are WNL, pt. is afebrile H&PE are most consistent with pt. that is non toxic in appearance with hx of recent spinal procedures/injections and onset of progressive pain and NAILS necessitating further w/u to r/o infectious process ORDERS: -CBC: Unremarkable -CMP: WNL, normal renal function -Lactic Acid: 2.3 - CT Neck with Contrast: Pending at time of sign out Pt. is signed out to attending physician pending imaging results and final disposition to be determined. (Tracy Currie) ER Course Hospital Course 44-year-old female presents with neck pain. History of neck surgery and recent steroid injection Clinical course Patient initially seen and evaluated by JOSE Currie; please see her note for full history and physical Labs - no leukocytosis, electrolytes ok CT scan shows no acute pathology I discussed findings with patient. Clinically I believe her pain is more muscular involving the muscles at the base of the neck. No neck stiffness. No fever. Provided copy of his CT report and scan. She will follow-up with her surgeon. I feel this is a highly complex case requiring extensive working including EKG/Rhythm strip, Xray/CT/US, Blood/urine lab work, repeat exams while in ED, and administration of strong opiates/narcotics for pain control, admission to hospital or close patient follow up. Diagnosis - neck pain Stable and discharged to home with lidoderm. Followup with PMD. Return to ED if symptoms recur or worsen Laboratory Tests Test 03/29/20 19:43 03/29/20 20:21 White Blood Count 5.7 K/UL (4.8-10.8) Red Blood Count 4.23 M/UL (4.20-5.40) Hemoglobin 12.8 G/DL (12.0-16.0) Hematocrit 39.6 % (37.0-47.0) Mean Corpuscular Volume 94 FL (80-99) Mean Corpuscular Hemoglobin 30.2 PG (27.0-31.0) Mean Corpuscular Hemoglobin Concent 32.2 G/DL (32.0-36.0) Red Cell Distribution Width 12.3 % (11.6-14.8) Platelet Count 253 K/UL (150-450) Mean Platelet Volume 7.6 FL (6.5-10.1) Neutrophils (%) (Auto) 56.2 % (45.0-75.0) Lymphocytes (%) (Auto) 34.1 % (20.0-45.0) Monocytes (%) (Auto) 7.3 % (1.0-10.0) Eosinophils (%) (Auto) 0.8 % (0.0-3.0) Basophils (%) (Auto) 1.5 % (0.0-2.0) Sodium Level 121 MMOL/L (136-145) L Potassium Level 3.6 MMOL/L (3.5-5.1) Chloride Level 98 MMOL/L (98-107) Carbon Dioxide Level 30 MMOL/L (21-32) Anion Gap -7 mmol/L (5-15) L Blood Urea Nitrogen 7 mg/dL (7-18) Creatinine 0.9 MG/DL (0.55-1.30) Estimat Glomerular Filtration Rate > 60 mL/min (>60) Glucose Level 107 MG/DL (74-106) H Lactic Acid Level 2.30 mmol/L (0.4-2.0) H 0.90 mmol/L (0.66-2.22) Calcium Level 8.0 MG/DL (8.5-10.1) L Total Bilirubin 0.3 MG/DL (0.2-1.0) Aspartate Amino Transf (AST/SGOT) 23 U/L (15-37) Alanine Aminotransferase (ALT/SGPT) 24 U/L (12-78) Alkaline Phosphatase 54 U/L (46-116) Total Protein 6.6 G/DL (6.4-8.2) Albumin 3.5 G/DL (3.4-5.0) Globulin 3.1 g/dL Albumin/Globulin Ratio 1.1 (1.0-2.7) (Sina Miller MD) CT/MRI/US Diagnostic Results CT/MRI/US Diagnostic Results : Imaging Test Ordered: CT neck w/ contrast Impression Procedure: CT Neck w Contrast EXAM: CT Neck With Intravenous Contrast CLINICAL HISTORY: PAIN TECHNIQUE: Axial computed tomography images of the neck with intravenous contrast. CTDI is 14.6 mGy and DLP is 423.3 mGy-cm. One or more of the following dose reduction techniques were used: automated exposure control, adjustment of the mA and/or kV according to patient size, use of iterative reconstruction technique. COMPARISON: No relevant prior studies available. FINDINGS: Oropharynx: Unremarkable. No significant tonsillar enlargement. No peritonsillar abscess. Hypopharynx: Unremarkable. Larynx: Unremarkable. Normal epiglottis. Trachea: Unremarkable. Retropharyngeal space: Unremarkable. Submandibular/parotid glands: Unremarkable. Glands are normal in size. Thyroid: Unremarkable. No enlarged or calcified nodules. Bones/joints: Postsurgical changes posterior fusion C3-C5 and interbody fusion C5-6 and C6-7. Cervical degenerative disc disease and facet arthropathy. Straightening of the cervical spine. No acute fracture. Soft tissues: Unremarkable. Vasculature: No acute findings. Lymph nodes: Unremarkable. No lymphadenopathy. Lung apices: Unremarkable as visualized. IMPRESSION: No acute disease. (Sina Miller MD) Last Vital Signs Date Time Temp Pulse Resp B/P (MAP) Pulse Ox O2 Delivery O2 Flow Rate FiO2 03/29/20 19:10 98.8 91 19 106/58 97 Room Air (Tracy Currie) Status: improved (Sina Miller MD) Disposition: HOME, SELF-CARE Condition: Stable Signed Out To: Dr. Miller (Tracy Currie) Scripts Lidocaine Patch* (Lidoderm Patch*) 1 Each Adh..patch 1 PATCH TOPIC DAILY, #7 PATCH 0 Refills Patch(es) may remain in place for up to 12 hours in any 24-hour period. Prov: Sina Miller MD 03/29/20 Referrals: LANDY ZAMORA M.D. (PCP) Tracy Currie Mar 29, 2020 20:36 Sina Miller MD Mar 29, 2020 22:02
--- NOTE | 2020-03-29 20:44 | NUR ---
ED Nurse Note: Lactic reflex collected and sent to lab
--- NOTE | 2020-03-29 21:05 | Diagnostic Imaging Report ---
EXAM: CT Neck With Intravenous Contrast CLINICAL HISTORY: PAIN TECHNIQUE: Axial computed tomography images of the neck with intravenous contrast. CTDI is 14.6 mGy and DLP is 423.3 mGy-cm. One or more of the following dose reduction techniques were used: automated exposure control, adjustment of the mA and/or kV according to patient size, use of iterative reconstruction technique. COMPARISON: No relevant prior studies available. FINDINGS: Oropharynx: Unremarkable. No significant tonsillar enlargement. No peritonsillar abscess. Hypopharynx: Unremarkable. Larynx: Unremarkable. Normal epiglottis. Trachea: Unremarkable. Retropharyngeal space: Unremarkable. Submandibular/parotid glands: Unremarkable. Glands are normal in size. Thyroid: Unremarkable. No enlarged or calcified nodules. Bones/joints: Postsurgical changes posterior fusion C3-C5 and interbody fusion C5-6 and C6-7. Cervical degenerative disc disease and facet arthropathy. Straightening of the cervical spine. No acute fracture. Soft tissues: Unremarkable. Vasculature: No acute findings. Lymph nodes: Unremarkable. No lymphadenopathy. Lung apices: Unremarkable as visualized. IMPRESSION: No acute disease.
[2020-03-29] MEDS ORDERED: LIDODERM700 M1 TOPIC (21:19)
[2020-03-29 21:44] VITALS: BP 110/62
--- NOTE | 2020-03-29 21:44 | NUR ---
ER DISCHARGE NOTE: Patient is cleared to be discharged per ERMD, pt is aox4, on room air, with stable vital signs. pt was given dc and prescription instructions, pt was able to verbalize understanding, pt id band and iv site removed intact without complications. pt is able to ambulate with steady gait. pt took all belongings. pt stable upon discharge.
== END 2020-03-29 21:44 | disposition home or self-care (01) ==
LOC: EMR 19:52
DX: M54.2 Cervicalgia (principal); R51.9 Headache, unspecified; Z85.850 Personal history of malignant neoplasm of thyroid; Z88.2 Allergy status to sulfonamides; Z88.1 Allergy status to other antibiotic agents; Z91.040 Latex allergy status; Z98.890 Other specified postprocedural states
CPT/HCPCS: 36415; 70491; 80053; 83605; 85025; 87040; 99284; Q9967